=== PATIENT | male | born 1995 | race Caucasian/White ===

== ENCOUNTER 2016-09-08 23:33 | Emergency (ER) | payer OTHER ==
[~2016-09-08] VITALS: Ht 177.8 cm; Wt 77.3 kg
[2016-09-09] MEDS ORDERED: BACITRACIN 0.9 GM PACKET OINTMENT TP ONE (02:00)
[2016-09-09] MEDS ORDERED: LIDOCAINE HCL BUFFERED 1% 20 ML VIAL INJ ONE (02:00)
[2016-09-09 02:28] VITALS: BP 129/76
== END 2016-09-09 02:41 | disposition home or self-care (01) ==
LOC: EMS 23:35
DX: S61.213A Laceration without foreign body of left middle finger without damage to nail, initial encounter (principal); W45.8XXA Other foreign body or object entering through skin, initial encounter; Y93.89 Activity, other specified; Y92.89 Other specified places as the place of occurrence of the external cause; Y99.8 Other external cause status
CPT/HCPCS: 12002; 99283; J3490